=== PATIENT | male | born 1970 | race Caucasian/White ===

== ENCOUNTER 2019-10-20 19:24 | Emergency (ER) | payer OTHER ==
[~2019-10-20] VITALS: Ht 170.2 cm; Wt 79.8 kg
[2019-10-20 19:44] VITALS: BP 142/86
[2019-10-20] MEDS ORDERED: diphenhydrAMINE 12.5 MG/5 ML UDC ONE (22:22)
[2019-10-20] MEDS ORDERED: methylPREDNISolone SS 125 MG/2 ML VIAL ONE (22:22)
[2019-10-20] MEDS ORDERED: INTUBATION KIT MC ONE (22:23)
[2019-10-20] MEDS ORDERED: EPINEPHrine PFS 0.1 MG/ML SYR IVP ONE (22:23)
[2019-10-20] MEDS ORDERED: diphenhydrAMINE 50 MG/ML VIAL ONE (22:24)
[2019-10-20] MEDS ORDERED: NALOXONE 0.4 MG/ML VIAL ONE (22:27)
[2019-10-20] MEDS ORDERED: EPINEPHrine 1:1000 - 1 MG/ML AMP ONE (22:28)
[2019-10-20] MEDS ORDERED: FLUMAZENIL 0.5 MG/5 ML VIAL IVP ONE (22:29)
== END 2019-10-20 20:33 | disposition home or self-care (01) ==
LOC: MED 19:24
DX: J02.9 Acute pharyngitis, unspecified (principal); Z20.828 Contact with and (suspected) exposure to other viral communicable diseases
CPT/HCPCS: 99283; U0003; J0171; J1200; J2310; J2930; J3490; Q0163